=== PATIENT | male | born 1960 | race Caucasian/White ===

== ENCOUNTER 2017-01-07 18:11 | Emergency (ER) | payer OTHER ==
[~2017-01-07] VITALS: Ht 180.3 cm; Wt 104.8 kg
[~2017-01-07 18:11] MED LIST: GLIPIZIDE5 M2 PO; HYDROCHLOROTHIA25 M1 PO; JANUMET 50-1,01 EACH PO; LEVEMIR FL100 UNIT/1 SC; LOSARTAN POTAS100 M1 PO; PANTOPRAZOLE SO40 M1 PO; TESTOSTERO200 MG/11 IM
[2017-01-07 18:13] VITALS: BP 158/88
[2017-01-07] MEDS ORDERED: TRESIBA FL200 UNIT/1 SC (18:35)
[2017-01-07] MEDS ORDERED: ALEVE220 M1 PO (18:37)
[2017-01-07] MEDS ORDERED: MOBIC15 M1 PO (19:01)
[2017-01-07] MEDS ORDERED: TRAMADOL HCL50 M1 PO (19:01)
--- NOTE | 2017-01-07 19:02 | ED UPPER/LOWER EXTREMITY COMPL ---
History of Present Illness General Chief Complaint: Upper Extremity Problem Stated Complaint: SHOULDER PAIN Source: patient, family () Exam Limitations: no limitations Vital Signs & Intake/Output Vital Signs & Intake/Output Vital Signs Date Time Temp Pulse Resp B/P Pulse O2 O2 Flow FiO2 Ox Delivery Rate 01/07 1813 97.4 100 20 158/88 96 Room Air ED Intake and Output 01/08 0000 01/07 1200 Intake Total Output Total Balance Patient 231 lb Weight Allergies Coded Allergies: No Known Allergies (09/23/16) Reconcile Medications Glipizide 5 MG TABLET 10 MG PO QHS DIABETES (Reported) Hydrochlorothiazide 25 MG TABLET 25 MG PO DAILY HTN (Reported) Insulin Degludec (Tresiba Flextouch U-200) 200 UNIT/ML (3 ML) INSULN.PEN 88 UNITS SC QAM DM (Reported) Losartan Potassium 100 MG TABLET 1 TAB PO DAILY HTN (Reported) Meloxicam (Mobic) 15 MG TABLET 1 TAB PO DAILY PRN PAIN/INFLAMMATION Naproxen Sodium (Aleve) 220 MG CAPSULE 2 CAP PO BID PAIN/INFLAMMATION ( Reported) Pantoprazole Sodium 40 MG TABLET.DR 1 TAB PO EOD GERD (Reported) Sitagliptin Phos/Metformin HCl (Janumet 50-1,000 MG Tablet) 50 MG-1,000 MG TABLET 2 TAB PO QHS DIABETES (Reported) Testosterone Enanthate 200 MG/ML VIAL 1 INJ IM Q2W Hormone therapy (Reported) Tramadol HCl 50 MG TABLET 1-2 TAB PO Q6 PRN pain Triage Note: PT STATES THAT HE HAS A PROBLEM WITH R SIDE ROTATOR CUFF FOR YEARS , BUT FOR THE PAST 1.5 MONTHS HE HAS BEEN HAVING CONSTANT PAIN .TOOK ALEVE WITH LITTLE RELIEF Triage Nurses Notes Reviewed? yes HPI: Patient is a 56 year old male presents complaining of right shoulder pain. Patient sustained a rotator cuff tear 7 years ago that imporved on its own. 1.5 months ago patient was lifting a bicycle and felt a tear in his right shoulder. Pain has been severe since then, mild improvement with Aleve. Pain worsens with shoulder range of motion. Patient is right hand dominant. Denies numbness, falls. (CR MUNGUIA,ROSETTA) Past History Travel History Traveled to [place] past 21 day No Medical History Any Pertinent Medical History? 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 No (ROSETTA OAKLEY) Review of Systems Review of Systems Constitutional: Denies: chills, fever. EENTM: Reports: no symptoms. Respiratory: Reports: no symptoms. Cardiovascular: Denies: chest pain. Musculoskeletal: Reports: see HPI. Denies: back pain, neck pain. Skin: Reports: no symptoms. Neurological/Psychological: Denies: numbness, paresthesia. Hematologic/Endocrine: Denies: bruising, bleeding. Immunological: Denies: splenectomy. (ROSETTA OAKLEY) Physical Exam Physical Exam General Appearance: well developed/nourished, alert, awake Head: atraumatic, normal appearance Eyes: Bilateral: normal appearance. Ears, Nose, Throat: hearing grossly normal Neck: normal inspection, full range of motion, no midline tenderness Cardiovascular/Respiratory: no respiratory distress Peripheral Pulses: 2+ radial (R) Back: normal inspection, normal range of motion, no vertebral tenderness Shoulder Right: Positive drop arm test. Active abduction and flexion to 90 degrees. No bony tenderness Elbow Right: normal range of motion, normal inspection, nontender Neurologic/Tendon: normal sensation, normal motor functions Skin: intact, normal color, warm/dry Lymphatic: no anterior cervical king (ROSETTA OAKLEY) Progress Differential Diagnosis: rotator cuff injury, tendinitis, bursitis, acromioclavicular separation Plan of Care: No recent trauma. Joint stable. X-rays deferred secondary to exam and mechanism of injury. (ROSETTA OAKLEY) Departure Departure Time of Disposition: 1858 Disposition: HOME OR SELF CARE Condition: Stable Clinical Impression Primary Impression: Rotator cuff tear, right Referrals: JAZMINE BURRELL,CHARLES SCOTT MD,RASHAD FERNANDEZ MD,DEEPA Davey (PCP/Family) Additional Instructions: Follow up with your primary care doctor for further evaluation and possible orthopedic referral. Call tomorrow for appointment. You may also contact the orthopedists listed in your discharge paperwork. Return to the ER if numbness, weakness, or worsening of symptoms. Departure Forms: Customer Survey General Discharge Information Prescriptions: Current Visit Scripts Meloxicam (Mobic) 1 TAB PO DAILY PRN PAIN/INFLAMMATION #10 TAB Tramadol HCl 1-2 TAB PO Q6 PRN pain #15 TAB (CR MUNGUIA,ROSETTA) PA/EPIC BEACON ANALYST Co-Sign Statement Statement: ED Attending supervision documentation- [] I saw and evaluated the patient. I have also reviewed all the pertinent lab results and diagnostic results. I agree with the findings and the plan of care as documented in the PA's/EPIC BEACON ANALYST's documentation. [X] I have reviewed the ED Record and agree with the PA's/EPIC BEACON ANALYST's documentation. [] Additions or exceptions (if any) to the PAs/EPIC BEACON ANALYST's note and plan are summarized below: [] (ANA BURRELL,HERMELINDO)
== END 2017-01-07 19:14 ==
LOC: ERH 18:11
DX: S46.011A Strain of muscle(s) and tendon(s) of the rotator cuff of right shoulder, initial encounter (principal); X50.0XXA Overexertion from strenuous movement or load, initial encounter; Y93.89 Activity, other specified; Y92.9 Unspecified place or not applicable

== ENCOUNTER 2018-05-07 09:15 | Emergency (ER) | payer OTHER ==
[~2018-05-07] VITALS: Ht 180.3 cm; Wt 106.6 kg
[~2018-05-07 09:15] MED LIST changes: +ALEVE220 M1 PO; +GLIPIZIDE ER10 M1 PO; +MOBIC15 M1 PO; +PREDNISOLO15 MG/5 M4 PO; +TESSALON PERLE100 M1 PO; +TRAMADOL HCL50 M1 PO; +TRESIBA FL200 UNIT/1 SC; +VENTOLIN HFA18 GM INH
[2018-05-07 10:25] LABS: ABSOLUTE BASOPHIL COUNT 0 /CUMM (0.0-0.2); ABSOLUTE EOSINOPHIL COUNT 0.1 /CUMM (0.0-0.7); ABSOLUTE GRANULOCYTE CT 5.3 /CUMM (1.4-6.5); ABSOLUTE LYMPH COUNT 1.8 /CUMM (1.2-3.4); ABSOLUTE MONOCYTE COUNT 0.5 /CUMM (0.10-0.60); BASOPHIL % 0.6 % (0.0-2.0); EOSINOPHIL % 0.9 % (0-5); GRANULOCYTE % 68.7 % (42.2-75.2); HEMATOCRIT 52.5 % (42-52); MEAN CORPUSCULAR HGB 29.4 PG (27.0-31.0); MEAN CORPUSCULAR VOLUME 86.5 FL (80.0-94.0); MEAN PLATELET VOLUME 8.1 FL (7.4-10.4); PLATELET COUNT 189 /CUMM (130-400); RBC DISTRIBUTION WIDTH 13.2 % (11.5-14.5); RED BLOOD CELL CT 6.06 /CUMM (4.70-6.10); WHITE BLOOD CELL COUNT 7.7 /CUMM (4.8-10.8)
[2018-05-07] MEDS ORDERED: METFORMIN HCL500 M4 PO (10:59)
[2018-05-07] MEDS ORDERED: TRULICITY0.75 MG/01 (10:59)
--- NOTE | 2018-05-07 10:59 | ED GI/GU/ABDOMINAL COMPLAINT ---
History of Present Illness General Chief Complaint: Nausea, Vomiting, Diarrhea Stated Complaint: NVD X 1WEEK Source: patient, family, old records Exam Limitations: no limitations Vital Signs & Intake/Output Vital Signs & Intake/Output Vital Signs Date Time Temp Pulse Resp B/P B/P Pulse O2 O2 Flow FiO2 Mean Ox Delivery Rate 05/07 1228 98.4 70 18 127/76 99 Room Air 05/07 0918 97.4 82 20 129/78 96 Room Air Allergies Coded Allergies: No Known Allergies (09/23/16) Reconcile Medications Dulaglutide (Trulicity) 0.75 MG/0.5 ML PEN.INJCTR DM (Reported) Hydrochlorothiazide 25 MG TABLET 25 MG PO DAILY HTN (Reported) Insulin Degludec (Tresiba Flextouch U-200) 200 UNIT/ML (3 ML) INSULN.PEN 96 UNITS SC QAM DM (Reported) Losartan Potassium 100 MG TABLET 1 TAB PO DAILY HTN (Reported) Metformin HCl (Metformin HCl ER) 500 MG TAB.ER.24H 1 TAB PO BID DIABETES ( Reported) Pantoprazole Sodium 40 MG TABLET.DR 1 TAB PO EOD GERD (Reported) Testosterone Enanthate 200 MG/ML VIAL 1 INJ IM Q2W Hormone therapy (Reported) Triage Note: PT TO ED C/O NAUSEA X 1 WEEK. HAS NOT VOMITED. STATES POOR PO INTAKE FOR THE LAST WEEK. C/O WEAKNESS. HAS BEEN ON PO ABX. HAS BEEN TAKING A FRIENDS ANTI-NAUSEA MED WITH NO RELIEF. DENIES ANY PAIN. Triage Nurses Notes Reviewed? yes Onset: Last week Duration: day(s):, constant, continues in ED Timing: recent history Quality/Severity: moderate Location: generalized abdomen Radiation: no radiation Activities at Onset: Augmentin for tooth infection Prior Abdominal Problems: none Past Sexual History: Unobtainable at this time Modifying Factors: Worsens With: eating. Associated Symptoms: diarrhea, loss of appetite, nausea/vomiting HPI: 1 week prior to admission patient was started on Augmentin for tooth infection. 2 days later he developed nausea anorexia and frequent loose watery stools. He no longer has diarrhea but the anorexia and nausea continued. He denies fever chills abdominal pain chest pain cough shortness of breath headache dysuria rash bleeding. Past History Travel History Traveled to [place] past 21 day No Medical History Any Pertinent Medical History? 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 No Review of Systems Review of Systems Constitutional: Reports: see HPI, malaise, weakness. EENTM: Reports: no symptoms. Respiratory: Reports: no symptoms. Cardiovascular: Reports: no symptoms. GI: Reports: see HPI, diarrhea, nausea. Genitourinary: Reports: no symptoms. Musculoskeletal: Reports: no symptoms. Skin: Reports: no symptoms. Neurological/Psychological: Reports: no symptoms. Hematologic/Endocrine: Reports: no symptoms. Immunologic/Allergic: Reports: no symptoms. All Other Systems: Reviewed and Negative Physical Exam Physical Exam General Appearance: well developed/nourished, alert, anxious, moderate distress Head: atraumatic, normal appearance Eyes: Bilateral: normal appearance, PERRL, EOMI, normal inspection. Ears, Nose, Throat, Mouth: hearing grossly normal, dry mucus membranes Neck: normal inspection, supple, full range of motion, normal alignment Respiratory: normal breath sounds, chest non-tender, no respiratory distress, quiet respiration, lungs clear Cardiovascular: regular rate/rhythm, normal peripheral pulses, norml femoral pulses equa Peripheral Pulses: 4+ carotid (R), 4+ carotid (L) Gastrointestinal: normal bowel sounds, soft, non-tender, no organomegaly Male Genitals: normal genitalia Back: normal inspection, normal range of motion Extremities: normal range of motion, no ligament instability Neurologic/Psych: no motor/sensory deficits, awake, alert, oriented x 3, normal gait, normal mood/affect Skin: intact, normal color, warm/dry Core Measures ACS in differential dx? No Sepsis Present: No Sepsis Focused Exam Completed? No Progress Differential Diagnosis: gastritis, pancreatitis, PUD/GERD Plan of Care: Orders Procedure Date/time Status URINALYSIS 05/07 09 Complete LIPASE 05/07 09 Complete COMPREHENSIVE METABOLIC PANEL 05/07 936 Complete CBC WITHOUT DIFFERENTIAL 05/07 936 Complete AMYLASE 05/07 936 Complete Laboratory Tests 05/07/18 1225: Urine Color YEL, Urine Clarity CLEAR, Urine pH 6.0, Ur Specific Cisco 1.025, Urine Protein 100 H, Urine Ketones NEG, Urine Nitrite NEG, Urine Bilirubin NEG, Urine Urobilinogen 0.2, Ur Leukocyte Esterase NEG, Ur Microscopic SEDIMENT EXAMINED, Urine RBC RARE, Urine WBC 1-3 H, Urine Bacteria FEW H, Urine Mucus MANY H, Urine Hemoglobin NEG, Urine Glucose 250 H 05/07/18 1018: Anion Gap 13, Estimated GFR > 60, BUN/Creatinine Ratio 22.5, Glucose 165 H, Calcium 9.7, Total Bilirubin 0.9, AST 18, ALT 39, Alkaline Phosphatase 41, Total Protein 7.6, Albumin 4.3, Globulin 3.3, Albumin/Globulin Ratio 1.3, Amylase 56, Lipase 89, CBC w Diff NO MAN DIFF REQ, RBC 6.06, MCV 86.5, MCH 29.4, MCHC 34.0, RDW 13.2, MPV 8.1, Gran % 68.7, Lymphocytes % 23.6, Monocytes % 6.2, Eosinophils % 0.9, Basophils % 0.6, Absolute Granulocytes 5.3, Absolute Lymphocytes 1.8, Absolute Monocytes 0.5, Absolute Eosinophils 0.1, Absolute Basophils 0 Initial ED EKG: none Departure Departure Time of Disposition: 1317 Disposition: HOME OR SELF CARE Condition: Stable Clinical Impression Primary Impression: Adverse drug reaction Secondary Impressions: Dehydration, Nausea Referrals: Meghna BURRELL,Cj Davey (PCP/Family) Departure Forms: Customer Survey General Discharge Information Prescriptions: Current Visit Scripts Ondansetron (Zofran Odt) 1 TAB SL TID PRN n/v #10 TAB
[2018-05-07] MEDS ORDERED: ZOFRAN ODT4 M1 SL (13:20)
[2018-05-07 13:28] VITALS: BP 134/74
== END 2018-05-07 13:40 ==
LOC: ERH 09:15
PROVIDERS: Physician Assistant
DX: E86.0 Dehydration (principal); T36.95XA Adverse effect of unspecified systemic antibiotic, initial encounter; R11.0 Nausea
CPT/HCPCS: 81001; 96361; 96374; 96375; J2405